=== PATIENT | female | born 1980 | race Caucasian/White ===

== ENCOUNTER 2018-06-30 08:42 | Emergency (ER) | payer OTHER ==
[2018-06-30] MEDS ORDERED: Sodium Chloride 0.9% 1,000 ML IV STA (09:01)
--- NOTE | 2018-06-30 09:13 | ED PDOC ---
Arrival/HPI - General Chief Complaint: Anxiety Time Seen by Provider: 06/30/18 08:43 Historian: Patient - History of Present Illness Narrative History of Present Illness (Text): 06/30/18 08:43 Shante Damon is a 37 year old female, with a past medical history of colitis and a-fib, who presents to the emergency department complaining of chest pain and left abdominal pain worsening since 2 days. Patient informs symptoms began as nausea and vomiting on the first day. Patient states symptoms are similar to her colitis symptoms. Patient informs she had similar symptoms without chest pain and was seen at [facility] around 4 weeks ago. Patient informs symptoms did not improve with ativan. Patient states history of irregular periods. Patient does not take any blood thinners or control. Patient denies fevers, chills, headache, dizziness, dyspnea on exertion, cough, diarrhea, neck pain, or any other complaint. Time/Duration: < week Symptom Onset: Gradual Symptom Course: Worsening Activities at Onset: Light Context: Home Past Medical History - Provider Review Nursing Documentation Reviewed: Yes - Infectious Disease Hx of Infectious Diseases: None - Reproductive Menopause: No - Cardiac Hx Cardiac Disorders: No Hx Hypertension: Yes - Pulmonary Hx Respiratory Disorders: No - Psychiatric Hx Substance Use: No Family/Social History - Physician Review Nursing Documentation Reviewed: Yes Family/Social History: Unknown Family HX Smoking Status: Current Some Days Smoker Hx Alcohol Use: Yes Frequency of alcohol use: Socially Hx Substance Use: No Allergies/Home Meds Allergies/Adverse Reactions: Allergies shellfish derived Allergy (Verified 06/30/18 08:49) RASH Home Medications: Home Meds Medication Instructions Recorded Confirmed amLODIPine [Norvasc] 5 mg PO DAILY 06/30/18 06/30/18 Review of Systems - Physician Review All systems were reviewed & negative as marked: Yes - Review of Systems Constitutional: absent: Fevers, Night Sweats Respiratory: SOB. absent: Cough Cardiovascular: Chest Pain Gastrointestinal: Abdominal Pain (left side), Nausea, Vomiting. absent: Diarrhea Musculoskeletal: Back Pain Neurological: absent: Headache, Dizziness Physical Exam Vital Signs Reviewed: Yes Vital Signs Temp Pulse Resp BP Pulse Ox 06/30/18 08:57 98.9 F 140 H 20 119/90 97 Temperature: Afebrile Blood Pressure: Normal Pulse: Tachycardic Respiratory Rate: Normal Appearance: Positive for: Well-Appearing, Non-Toxic, Comfortable Pain Distress: None Mental Status: Positive for: Alert and Oriented X 3 - Systems Exam Head: Present: Atraumatic, Normocephalic Pupils: Present: PERRL Extroacular Muscles: Present: EOMI Conjunctiva: Present: Normal Mouth: Present: Moist Mucous Membranes Neck: Present: Normal Range of Motion Respiratory/Chest: Present: Clear to Auscultation, Good Air Exchange. No: Respiratory Distress, Accessory Muscle Use, Wheezes, Rales, Rhonchi Cardiovascular: Present: Normal S1, S2, Tachycardic. No: Murmurs Abdomen: Present: Tenderness (LLQ tenderness). No: Distention, Peritoneal Signs Back: Present: Normal Inspection Upper Extremity: Present: Normal Inspection. No: Cyanosis, Edema Lower Extremity: Present: Normal Inspection. No: Edema Neurological: Present: GCS=15, CN II-XII Intact, Speech Normal Skin: Present: Warm, Dry, Normal Color. No: Rashes Psychiatric: Present: Alert, Oriented x 3, Normal Insight, Normal Concentration, Anxious Medical Decision Making ED Course and Treatment: 06/30/18 08:43 Impression: Patient is a 37 year old female who presents to the Emergency department with complaints of chest pain and abdominal pain on the left side. Differential Diagnosis included but are not limited to: --Hyperemesis cannabinoid syndrome --Colitis --PE Plan: -- EKG -- Labs -- Chest X-Ray -- Urinalysis -- Urine Test -- IV Insertion -- IV Fluids -- Toradol -- Valium -- Zofran Inj. -- Reassess and disposition Prior Visits: Notes and results from previous visits were reviewed. Progress Notes: 06/30/18 9:50 Patient interrogated for possible shellfish allergy. Patient denies any periorbital swelling, shortness of breath, throat tingling, or hives. Spoke and purveyed information to emergency department corrosion control technician, who states pre medication protocol for CT is 18 hours. Will order VQ scan and CT Abdomen/Pelvis CT without contrast at this time. 06/30/18 12:05 CT scan shows no evidence of colitis, just chronic inflammatory changes seen within bowel. CXR shows no evidence of focal infiltrates or consolidation. Patient 06/30/18 15:21 VQ scan shows low probability of pulmonary embolism at this time. Patient reevaluated and advised cannabis cessation. She is advised to continue conservative measurement at home. - Lab Interpretations Lab Results: 06/30/18 08:50 06/30/18 08:50 Lab Results 06/30/18 09:30: Urine Opiates Screen Negative, Urine Methadone Screen Negative, Ur Barbiturates Screen Negative, Ur Phencyclidine Scrn Negative, Ur Amphetamines Screen Negative, U Benzodiazepines Scrn Negative, U Oth Cocaine Metabols Negative, U Cannabinoids Screen Positive H 06/30/18 09:30: Urine Color Yellow, Urine Appearance Sl cloudy, Urine pH 6.5, Ur Specific Dugger >= 1.030, Urine Protein 100 H, Urine Glucose (UA) Negative, Urine Ketones >=80, Urine Blood Trace-intact H, Urine Nitrate Negative, Urine Bilirubin Small H, Urine Urobilinogen 1.0 H, Ur Leukocyte Esterase Negative, Urine RBC 2 - 5 H, Urine WBC 1 - 3, Ur Epithelial Cells 10 - 12 H, Amorphous Sediment Few, Urine Bacteria Many, Hyaline Casts 0 - 2, Fine Granular Casts 0 - 2, Coarse Granular Casts Trace, Urine Other Uyeast 06/30/18 08:50: Sodium 137, Potassium 3.1 L, Chloride 95 L, Carbon Dioxide 19 L, Anion Gap 26 H, BUN 10, Creatinine 0.8, Est GFR ( Amer) > 60, Est GFR (Non-Af Amer) > 60, Random Glucose 113 H, Calcium 8.7, Magnesium 1.6 L, Total Bilirubin 1.0, AST 152 H, ALT 83 H, Alkaline Phosphatase 124, Troponin I < 0.01, NT-Pro-B Natriuret Pep 39.8, Total Protein 8.1, Albumin 4.7, Globulin 3.4, A lbumin/Globulin Ratio 1.4, Lipase 114 06/30/18 08:50: D-Dimer, Quantitative 839 H 06/30/18 08:50: WBC 8.7, RBC 4.08, Hgb 13.8, Hct 40.4, MCV 99.0, MCH 33.8, MCHC 34.2, RDW 14.2, Plt Count 318, MPV 9.9, Neut % (Auto) 68.5 H, Lymph % (Auto) 23.2, Orange % (Auto) 8.0 H, Eos % (Auto) 0.1 L, Baso % (Auto) 0.2, Lymph # (Auto) 2.0, Orange # (Auto) 0.7 H, Eos # (Auto) 0.0, Baso # (Auto) 0.02, Absolute Neuts (auto) 5.98 I have reviewed the lab results: Yes - RAD Interpretation Narrative RAD Interpretations (Text): 06/30/18 14:37 Reviewed Chest X-Ray, shows: FINDINGS: LUNGS: No active pulmonary disease. PLEURA: No significant pleural effusion identified, no pneumothorax apparent. CARDIOVASCULAR: No aortic atherosclerotic calcification present. Normal cardiac size. No pulmonary vascular congestion. OSSEOUS STRUCTURES: No significant abnormalities. VISUALIZED UPPER ABDOMEN: Normal. OTHER FINDINGS: None. IMPRESSION: No active disease. Reviewed CT Abdomen / Pelvis w/o IV contrast, shows: FINDINGS: LOWER THORAX: Unremarkable. LIVER: There is severe fatty infiltration of the liver and hepatomegaly. GALLBLADDER AND BILE DUCTS: The gallbladder contents are dense relative to the fatty liver. There are no calcified stones seen. PANCREAS: Unremarkable. No gross lesion or ductal dilatation. SPLEEN Unremarkable. ADRENALS: Unremarkable. No mass. KIDNEYS AND URETERS: Unremarkable. No hydronephrosis. No solid mass. 2 mm nonobstructing stone in the left kidney VASCULATURE: Unremarkable. No aortic aneurysm. No aortic atherosclerotic calcification or mural plaque present. BOWEL: There is no evidence of acute colitis. There is fatty infiltration of the bowel wall in the colon consistent with chronic inflammatory bowel disease. APPENDIX: Unremarkable. Normal appendix. PERITONEUM: Unremarkable. No free fluid. No free air. LYMPH NODES: Unremarkable. No enlarged lymph nodes. BLADDER: Unremarkable. REPRODUCTIVE: Unremarkable. BONES: No acute fracture. OTHER FINDINGS: None. IMPRESSION: There is no evidence of acute colitis. There is fatty infiltration of the bowel wall in the colon consistent with chronic inflammatory bowel disease. There is severe fatty infiltration of the liver and hepatomegaly Radiology Orders: 06/30/18 08:50 CHEST PORTABLE [RAD] Stat Blacksmith Hammer Operator: Radiologist - EKG Interpretation EKG Interpretation (Text): 06/30/18 08:50 Reviewed EKG, shows: Sinus Tachycardia at [address] depressions, prolonged QT interval. Interpreted by ED Physician: Yes Type: 12 lead EKG - Medication Orders Current Medication Orders: Sodium Chloride (Sodium Chloride 0.9%) 1,000 mls @ 999 mls/hr IV .Q1H1M STA Stop: 06/30/18 10:01 Discontinued Medications Diazepam (Valium) 5 mg PO ONCE ONE; Protocol Stop: 06/30/18 09:02 Ketorolac Tromethamine (Toradol) 30 mg IVP STAT STA Stop: 06/30/18 09:02 06/30/18 12:17 Discontinued Medications Capsaicin (Capzasin-Hp) 0 gm TOP ONCE ONE Stop: 06/30/18 12:06 Diazepam (Valium) 5 mg PO ONCE ONE; Protocol Stop: 06/30/18 09:02 Last Admin: 06/30/18 09:11 Dose: 5 mg Sodium Chloride (Sodium Chloride 0.9%) 1,000 mls @ 999 mls/hr IV .Q1H1M STA Stop: 06/30/18 10:01 Last Admin: 06/30/18 09:09 Dose: 999 mls/hr eMAR Start Stop Document 06/30/18 09:09 SRE (Rec: 06/30/18 09:11 [id number] Intravenous Solution Start Date 06/30/18 Start Time 09:00 End Date 06/30/18 End time 10:00 Total Infusion Time 60 Ketorolac Tromethamine (Toradol) 30 mg IVP STAT STA Stop: 06/30/18 09:02 Last Admin: 06/30/18 09:11 Dose: 30 mg ЕЛЕНА Pain Assessment Document 06/30/18 09:11 SRE (Rec: 06/30/18 09:11 SRE [id number]) Pain Reassessment Is this a pain reassessment? Yes Sleep Is patient sleeping during reassessment? No Presence of Pain Presence of Pain Yes IVP Administration Document 06/30/18 09:11 SRE (Rec: 06/30/18 09:11 SRE [id number]) Charges for Administration # of IVP Administrations 1 Morphine Sulfate (Morphine) 4 mg IVP STAT STA Stop: 06/30/18 09:50 Last Admin: 06/30/18 10:03 Dose: 4 mg MAR Pain Assessment Document 06/30/18 10:03 SRE (Rec: 06/30/18 10:05 SRE [id number]) Pain Reassessment Is this a pain reassessment? Yes Sleep Is patient sleeping during reassessment? No Presence of Pain Presence of Pain Yes Pain Scale Used Protocol: PSCALES Pain Scale Used Numeric Location Pain Location Body Site Abdomen Description Description Constant IVP Administration Document 06/30/18 10:03 SRE (Rec: 06/30/18 10:05 SRE [id number]) Charges for Administration # of IVP Administrations 1 Ondansetron HCl (Zofran Inj) 4 mg IVP STAT STA Stop: 06/30/18 09:09 Last Admin: 06/30/18 09:13 Dose: 4 mg IVP Administration Document 06/30/18 09:13 SRE (Rec: 06/30/18 09:17 SRE [id number]) Charges for Administration # of IVP Administrations 1 Potassium Chloride (Potassium Chloride Oral Soln) 40 meq PO STAT STA Stop: 06/30/18 09:51 Last Admin: 06/30/18 10:05 Dose: 40 meq - Scribe Statement The provider has reviewed the documentation as recorded by the Scribe Yared Tolliver All medical record entries made by the Scribe were at my direction and personally dictated by me. I have reviewed the chart and agree that the record accurately reflects my personal performance of the history, physical exam, medical decision making, and the department course for this patient. I have also personally directed, reviewed, and agree with the discharge instructions and disposition. Disposition/Present on Arrival - Present on Arrival Any Indicators Present on Arrival: No History of DVT/PE: No History of Uncontrolled Diabetes: No Urinary Catheter: No History of Decub. Ulcer: No History Surgical Site Infection Following: None - Disposition Have Diagnosis and Disposition been Completed?: Yes Diagnosis: Anxiety, Nausea & vomiting Disposition: HOME/ ROUTINE Disposition Time: 15:22 Patient Plan: Discharge Patient Problems: Current Active Problems Problem Status Onset Anxiety Acute Nausea & vomiting Acute Condition: STABLE Discharge Instructions (ExitCare): Anxiety, Adult (DC), Nausea and Vomiting, Adult (DC), Viral Gastroenteritis, Adult (DC) Print Language: ROMANIAN Additional Instructions: All medical record entries made by the Scribe were at my direction and personally dictated by me. I have reviewed the chart and agree that the record accurately reflects my personal performance of the history, physical exam, medical decision making, and the department course for this patient. I have also personally directed, reviewed, and agree with the discharge instructions and disposition. Please try to stay away from those who are smoking weed Please take hot showers when you feel symptoms arise Please take anti nausea medications as needed Prescriptions: Capsaicin 0.1% [Capzasin-Hp] 42.5 gm TP PRN PRN #1 cream..g. PRN Reason: Nausea/Vomiting Ondansetron ODT [Zofran ODT] 4 mg PO Q6H #12 odt Referrals: Kaila Avina MD [Medical Doctor] - Follow up with primary [facility] [place] - Follow up with primary Forms: [employer] (Cam[place]onian), WORK NOTE
[2018-06-30 09:15] LABS: BASO # 0.02 K/mm3 (0.0-2.0); BASO % 0.2 % (0.0-3.0); EOS % 0.1 % (1.5-5.0); HEMOGLOBIN 13.8 g/dL (12.0-16.0); LYMPH % 23.2 % (22.0-35.0); MEAN CORPUSCULAR HEMOGLOBIN 33.8 pg (25.0-35.0); MEAN CORPUSCULAR HGB CONC 34.2 g/dl (31.0-37.0); MEAN PLATELET VOLUME 9.9 fl (7.0-11.0); MONO # 0.7 (0.1-0.6); RBC 4.08 10^6/uL (3.5-6.1); RED CELL DISTRIBUTION WIDTH 14.2 % (11.5-14.5); WHITE BLOOD COUNT 8.7 10^3/uL (4.5-11.0)
[2018-06-30 09:24] LABS: ALB/GLOB RATIO 1.4 (1.1-1.8); ALBUMIN 4.7 g/dL (3.0-4.8); ALT/SGPT 83 U/L (7-56); AST/SGOT 152 U/L (14-36); BLOOD UREA NITROGEN 10 mg/dL (7-21); CALCIUM 8.7 mg/dL (8.4-10.5); GFR NON-AFRICAN AMERICAN > 60; LIPASE 114 U/L (23-300)
[2018-06-30 09:35] LABS: B-TYPE NATRIURETIC PEPTIDE 39.8 pg/mL (0-450); TROPONIN I < 0.01 ng/mL
[2018-06-30 09:47] LABS: PH,URINE 6.5 (4.7-8.0); URINE APPEARANCE SL CLOUDY (CLEAR); URINE BILIRUBIN SMALL (NEGATIVE); URINE BLOOD TRACE-INTACT (NEGATIVE); URINE COLOR YELLOW (YELLOW); URINE GLUCOSE (UA) NEGATIVE (NEGATIVE); URINE LEUKOCYTE ESTERASE NEGATIVE Leu/uL (NEGATIVE); URINE PROTEIN 100 mg/dL (<30 mg/dL)
[2018-06-30] MEDS ORDERED: DiphenhydrAMINE 50 mg/ml Inj IVP STA (09:49)
[2018-06-30] MEDS ORDERED: Morphine 4 mg/ml ISec IVP STA (09:49)
[2018-06-30] MEDS ORDERED: Potassium Chloride 40 mEq/30 ml LIQ UD PO STA (09:50)
[2018-06-30 09:52] LABS: URINE AMORPHOUS SEDIMENT FEW /hpf; URINE BACTERIA MANY /hpf; URINE COARSE GRANULAR CAST TRACE /hpf; URINE FINE GRANULAR CAST 0 - 2 /hpf; URINE HYALINE CAST 0 - 2 /hpf
[2018-06-30 10:18] LABS: BARBITURATES, UR NEGATIVE (NEGATIVE); BENZODIAZEPINES, UR NEGATIVE (NEGATIVE); OPIATES, UR NEGATIVE (NEGATIVE); PHENCYCLIDINE, UR NEGATIVE (NEGATIVE)
--- NOTE | 2018-06-30 11:09 | CT ---
Date of service: 06/30/2018 PROCEDURE: CT Abdomen and Pelvis without intravenous contrast HISTORY: h/o colitis w/ LLQ abd pain COMPARISON: None. TECHNIQUE: Without contrast.. Contrast dose: Radiation dose: Total exam DLP = 413.3 mGy-cm. This CT exam was performed using one or more of the following dose reduction techniques: Automated exposure control, adjustment of the mA and/or kV according to patient size, and/or use of iterative reconstruction technique. FINDINGS: LOWER THORAX: Unremarkable. LIVER: There is severe fatty infiltration of the liver and hepatomegaly. GALLBLADDER AND BILE DUCTS: The gallbladder contents are dense relative to the fatty liver. There are no calcified stones seen. PANCREAS: Unremarkable. No gross lesion or ductal dilatation. SPLEEN: Unremarkable. ADRENALS: Unremarkable. No mass. KIDNEYS AND URETERS: Unremarkable. No hydronephrosis. No solid mass. 2 mm nonobstructing stone in the left kidney VASCULATURE: Unremarkable. No aortic aneurysm. No aortic atherosclerotic calcification or mural plaque present. BOWEL: There is no evidence of acute colitis. There is fatty infiltration of the bowel wall in the colon consistent with chronic inflammatory bowel disease. APPENDIX: Unremarkable. Normal appendix. PERITONEUM: Unremarkable. No free fluid. No free air. LYMPH NODES: Unremarkable. No enlarged lymph nodes. BLADDER: Unremarkable. REPRODUCTIVE: Unremarkable. BONES: No acute fracture. OTHER FINDINGS: None. IMPRESSION: There is no evidence of acute colitis. There is fatty infiltration of the bowel wall in the colon consistent with chronic inflammatory bowel disease. There is severe fatty infiltration of the liver and hepatomegaly.
[2018-06-30] MEDS ORDERED: CAPSAICIN 0.1% TOP ONE (12:05)
--- NOTE | 2018-06-30 14:31 | RAD ---
Date of service: 06/30/2018 HISTORY: sob COMPARISON: No prior. FINDINGS: LUNGS: No active pulmonary disease. PLEURA: No significant pleural effusion identified, no pneumothorax apparent. CARDIOVASCULAR: No aortic atherosclerotic calcification present. Normal cardiac size. No pulmonary vascular congestion. OSSEOUS STRUCTURES: No significant abnormalities. VISUALIZED UPPER ABDOMEN: Normal. OTHER FINDINGS: None. IMPRESSION: No active disease.
--- NOTE | 2018-06-30 15:08 | CARD ---
APPROVED REPORT Date of service: 06/30/2018 EKG Measurement Heart [id number] <Conclusion> Sinus tachycardia Otherwise normal ECG
--- NOTE | 2018-06-30 15:18 | NM ---
Date of service: 06/30/2018 COMPARISON: June 30, 2018 single-view chest. TECHNIQUE: 30.0 mCi technetium 99-m DTPA aerosol. 3.8 mCI technetium 99-m MAA administered intravenously. FINDINGS: VENTILATION COMPONENT: Mildly heterogeneous ventilation. PERFUSION COMPONENT: Heterogeneous distribution of radionuclide. No geographic, segmental, lobar abnormalities apparent on the present examination. IMPRESSION: Low probability ventilation perfusion scan for pulmonary embolism.
[2018-06-30 16:15] VITALS: BP 138/84; PULSE 120; RESP 20; TEMP 98.6; O2SAT 97
== END 2018-06-30 16:15 | disposition home or self-care (01) ==
LOC: ED 08:42
DX: F41.9 Anxiety disorder, unspecified (principal); R11.2 Nausea with vomiting, unspecified; I10 Essential (primary) hypertension; I48.91 Unspecified atrial fibrillation
CPT/HCPCS: 71045; 74176; 78582; 80053; 80324; 80345; 80346; 80349; 80353; 80358; 80361; 81001; 81025; 83690; 83735; 83880; 83992; 84484; 85025; 85378; 93005; 96361; 96374; 96375; 99284; J1885; J2270; J2405; J2765; J3480; J7030